=== PATIENT | male | born 1960 | race Caucasian/White ===

== ENCOUNTER 2017-11-20 14:24 | Emergency (ER) | payer OTHER ==
[~2017-11-20] VITALS: Ht 172.7 cm; Wt 81.6 kg
[2017-11-20 14:25] VITALS: BP 142/79
[2017-11-20] MEDS ORDERED: CEFADROXIL500 M1 PO (14:42)
== END 2017-11-20 16:04 | disposition home or self-care (01) ==
LOC: ED 14:24
DX: S01.01XA Laceration without foreign body of scalp, initial encounter (principal); W11.XXXA Fall on and from ladder, initial encounter; Y93.89 Activity, other specified; Y92.89 Other specified places as the place of occurrence of the external cause; Y99.9 Unspecified external cause status